=== PATIENT | male | born 1945 | race Hispanic/Latino ===

== ENCOUNTER 2020-08-07 06:47 | Day surgery (SDC) | payer MEDICARE ==
[2020-08-07 07:53] LABS: Hematocrit 36.7 % (35.5-45.6); Hemoglobin 12.8 gm/dl (11.8-15.2); Mean Corpuscular HGB Conc 35 % (32-34); Mean Corpuscular Volume 95 fl (84-94); Platelet Count 221 K/mm3 (140-440); Red Blood Count 3.88 M/mm3 (3.65-5.03); Red Cell Distribution Width 16.7 % (13.2-15.2)
[2020-08-07] MEDS ORDERED: SODIUM CHLORIDE 0.9% 500 ML 500 ML IV SCH (08:00)
[2020-08-07 08:02] LABS: Calcium 9.1 mg/dL (8.4-10.2)
[2020-08-07 08:03] LABS: Partial Thromboplastin Time 30.5 Sec. (24.2-36.6)
[2020-08-07 08:25] LABS: INR 1.02 (0.87-1.13)
[2020-08-07] MEDS ORDERED: HEPARIN/NS 5000 UNIT/500ML 1,000 ML IR ONE (08:35)
[2020-08-07] MEDS ORDERED: HEPARIN 10,000 UNITS/10 ML VIAL ONE (08:35)
[2020-08-07] MEDS ORDERED: MIDAZOLAM 2 MG/2 ML INJ ONE (08:35)
[2020-08-07] MEDS ORDERED: fentaNYL 100 MCG/2 ML INJ ONE (08:36)
[2020-08-07] MEDS ORDERED: ceFAZolin/Water 2 GM/20 ML 2 GM/20 ML SYRINGE IV ONE (08:37)
[2020-08-07] MEDS ORDERED: NITROGLYCERIN SYRINGE 0 ML ONE (08:37)
--- NOTE | 2020-08-07 08:47 | Short Stay Summary ---
Short Stay Documentation Date of service: 08/07/20 - History Principal diagnosis: Peripheral vascular disease with rest pain Past Medical History: PVD, other (Venous hypertension) Past Surgical History: Other (Prior right common iliac artery stent) Social history: , lives with family - Allergies and Medications Current Medications: Allergies morphine Allergy (Severe, Verified 08/07/20 07:25) Unknown latex Allergy (Verified 08/07/20 07:25) Itching Active Medications Sodium Chloride (Nacl 0.9% 500 Ml) 500 mls @ 50 mls/hr IV DIRECT CORAZON - Physical exam General appearance: no acute distress Integumentary: other (Bilateral lower extremity cellulitis) HEENT: EOMI Lungs: Normal air movement Heart: Regular rate Gastrointestinal: normal Male Genitourinary: deferred Rectal Exam: deferred Extremities: abnormal (Nonpalpable pedal pulses, bilateral lower extremity cellulitis with +1 edema) Neurological: Normal speech, Normal tone (Parkinson's) - Brief post op/procedure progress note Date of procedure: 08/07/20 Pre-op diagnosis: Peripheral vascular disease with rest pain Post-op diagnosis: same Procedure: Bilateral common iliac artery stenting Anesthesia: local Surgeon: NISHI KINGSTON Estimated blood loss: none Pathology: none Condition: stable - Disposition Condition at discharge: Good Disposition: DC-01 TO HOME OR SELFCARE Short Stay Discharge Plan Activity: advance as tolerated Weight Bearing Status: Weight Bear as Tolerated Diet: regular Wound: keep clean and dry, per your surgeon's advice Follow up with: YOVANNY KENDALL MD [Primary Care Provider] - 7 Days
[2020-08-07] MEDS: LIDOCAINE (2%) 20 MG/1 ML VIAL 20 ML MDV INFILTRATI ONE ×2 (09:19→09:22)
[2020-08-07 09:42] LABS: Total Cells Counted 100
[2020-08-07 09:47] LABS: Platelet Estimate Consistent w Auto; RBC Morphology Normal
--- NOTE | 2020-08-07 11:07 | Operative Report ---
Operative Report Operative Report: Exam: Bilateral common iliac artery stenting Clinical indication: Patient with a history of peripheral vascular disease with rest pain and prior diagnostic imaging demonstrating severe stenosis in his common iliac arteries bilaterally with prior placement of a self-expanding nitinol stent in the right common iliac artery with in-stent restenosis Date: 08/07/2020 Procedure: Following an explanation of the risk, benefits and alternatives; written informed consent was obtained. The patient was brought to the angiographic suite and placed in supine position on the examination table. Initial ultrasound evaluation of his groins demonstrated patent common femoral arteries bilaterally. The patient's bilateral groins were prepped and draped in the usual sterile fashion. 1% lidocaine was used for anesthesia. Under ultrasound guidance, the right common femoral artery was cannulated with a 7 cm 21-gauge needle. A 0.018 guidewire was advanced centrally. The needle was removed and a microsheath placed. The 0.018 guidewire was exchanged for a 0.035 guidewire and the micro sheath exchanged for a 5 [place]. Sheath. Access to the left common femoral artery was obtained in a similar fashion and an additional 5 [place] sheath placed. The 0.035 guidewires were then manipulated into the abdominal aorta. Over the sheath on the left, an Omni Flush catheter was advanced over the guidewire to the distal abdominal aorta. Dilute contrast was then injected which demonstrates ectasia of the distal abdominal aorta with high-grade stenosis involving bilateral common iliac arteries. The internal iliac arteries are well-opacified. The Omni Flush catheter was removed over the guidewire. Contrast was then injected to both sheaths for procedural planning and a roadmap obtained. An 8 mm x 59 mm VBX balloon expandable stent was then advanced through the right sheath. An 8 mm x 59 mm VBX balloon expandable stent was then advanced through the left sheath. Under fluoroscopy, the stents were deployed in kissing fashion from the distal abdominal aorta to the distal common iliac arteries just proxi mal to the bifurcation bilaterally. Approximately 1 cm of stent was placed in the distal abdominal aorta proximally. Post placement imaging was obtained following placement of an Omni Flush catheter through the left sheath again and positioning of the catheter tip in the distal abdominal aorta. There is brisk flow throughout the distal abdominal aorta and bilateral common iliac arteries. There is prompt opacification of the internal iliac arteries as well. At this point, the catheters, guidewires and sheaths were removed and hemostasis achieved in both groins using an Angio-Seal arterial closure device and manual compression. Compression dressings were then applied. The patient tolerated the procedure well. There were no immediate postprocedure complications. Conscious sedation was performed under the guidance of radiologic nursing. Continuous cardiopulmonary monitoring was utilized. Impression: Placement of bilateral common iliac artery stenting with significantly improved flow following the procedure. Patient's pedal pulses are much more strongly dopplerable following the procedure.
[2020-08-07] MEDS ORDERED: oxyCODONE /ACETAMINOPHEN 5-325MG TAB PO ONE (11:48)
[2020-08-07 12:42] VITALS: BP 125/61
== END 2020-08-07 13:15 | disposition home or self-care (01) ==
LOC: CATHLABREC 06:47
PROVIDERS: ATTEND Radiology Diagnostic Radiology
DX: I70.213 Atherosclerosis of native arteries of extremities with intermittent claudication, bilateral legs (principal); I11.0 Hypertensive heart disease with heart failure; I50.9 Heart failure, unspecified; I25.118 Atherosclerotic heart disease of native coronary artery with other forms of angina pectoris; I48.91 Unspecified atrial fibrillation; E78.00 Pure hypercholesterolemia, unspecified; J44.9 Chronic obstructive pulmonary disease, unspecified; G47.30 Sleep apnea, unspecified; D64.9 Anemia, unspecified; Z82.5 Family history of asthma and other chronic lower respiratory diseases; Z82.61 Family history of arthritis; Z79.899 Other long term (current) drug therapy; Z88.5 Allergy status to narcotic agent; Z91.040 Latex allergy status; Z79.82 Long term (current) use of aspirin; Z87.891 Personal history of nicotine dependence; Z98.890 Other specified postprocedural states; Z95.2 Presence of prosthetic heart valve; Z90.49 Acquired absence of other specified parts of digestive tract; Z82.49 Family history of ischemic heart disease and other diseases of the circulatory system
CPT/HCPCS: 36415; 37221; 76937; 80048; 85025; 85610; 85730; 99156; 99157; C1760; C1769; C1874; C1887; C1894; J0690; J1644; J2250; J3010; J7040; 85007; Q9967